=== PATIENT | female | born 1965 | race African-American/Black ===

== ENCOUNTER 2018-04-15 18:42 | Emergency (ER) | payer BC | END 2018-04-15 18:43 | disposition left against medical advice (07) | LOC: ER 18:42 | DX: Z53.21 Procedure and treatment not carried out due to patient leaving prior to being seen by health care provider (principal) ==

== ENCOUNTER 2019-03-12 12:15 | Emergency (ER) | payer SELFPAY ==
--- NOTE | 2019-03-12 12:51 | ER Document Report ---
ED General - General Chief Complaint: Neck and Upper Back Pain Stated Complaint: NECK PAIN Time Seen by Provider: 03/12/19 12:45 TRAVEL OUTSIDE OF THE [place] IN LAST 30 DAYS: No - HPI Notes: 54-year-old female to the emergency department with complaints of left-sided neck pain that began about 1 week ago. She states that she saw her primary care physician who gave her a muscle relaxant but it did not really help. She then noticed that she started to have some swelling in the back of her scalp and down her lymph nodes on the left side. She denies any fevers or chills. She admits to slight headache with it. Notably she states that she got her haircut last week. Patient has a very short haircut with it nearly buzzed in the area where she is saying is swollen and painful. - Related Data Allergies/Adverse Reactions: No Known Allergies Allergy (Verified 03/12/19 12:35) Home Medications: cardevlol. amlodipine Past Medical History - General Information source: Patient - Social History Smoking Status: Never Smoker Chew tobacco use (# tins/day): No Frequency of alcohol use: None Drug Abuse: None Family History: Arthritis, CAD, DM, Hyperlipidemia, Hypertension, Malignancy Patient has suicidal ideation: No Patient has homicidal ideation: No - Past Medical History Cardiac Medical History: Reports: Hx Hypertension Past Surgical History: Reports: Hx Tubal Ligation - Immunizations Immunizations up to date: Yes Hx Diphtheria, Pertussis, Tetanus Vaccination: Yes - 2014 Review of Systems - Review of Systems Constitutional: denies: Chills, Fever EENT: No symptoms reported, Other - Swelling of lymph nodes on the left side and swelling in the scalp Cardiovascular: denies: Chest pain, Palpitations, Dizziness, Lightheaded Respiratory: denies: Cough, Short of breath Gastrointestinal: denies: Abdominal pain, Diarrhea, Nausea, Vomiting Musculoskeletal: See HPI, Neck pain Skin: No symptoms reported Hematologic/Lymphatic: No symptoms reported Neurological/Psychological: No symptoms reported -: Yes All other systems reviewed and negative Physical Exam - Vital signs Vitals: Temp Pulse Resp BP Pulse Ox 98.3 F 71 16 147/87 H 98 03/12/19 12:26 03/12/19 12:26 03/12/19 12:26 03/12/19 12:26 03/12/19 12:26 Interpretation: Normal - General General appearance: Appears well, Alert - HEENT Head: Atraumatic, Other - Patient has a folliculitis to her left occipital scalp that is most consistent with folliculitis Barbae. There are no areas of fluctuance that can be drained. She does have reactive lymph nodes along the cervical chain. There is no streaking erythema. Eyes: Normal Pupils: PERRL Ears: Normal External canal: Normal Tympanic membrane: Normal Sinus: Normal Nasal: Normal Mouth/Lips: Normal Pharynx: Normal Neck: Supple - Respiratory Respiratory status: No respiratory distress. No: Retractions Chest status: Nontender. No: Accessory muscle use Breath sounds: Normal. No: Rales, Rhonchi, Wheezing Chest palpation: Normal - Cardiovascular Rhythm: Regular Heart sounds: Normal auscultation Murmur: No - Abdominal Inspection: Normal Distension: No distension Bowel sounds: Normal Tenderness: Nontender Organomegaly: No organomegaly - Neurological Neuro grossly intact: Yes Cognition: Normal Orientation: AAOx4 [place] Coma Scale Eye Opening: Spontaneous [place] Coma Scale Verbal: Oriented [place] Coma Scale Motor: Obeys Commands [place] Coma Scale Total: 15 Speech: Normal Cranial nerves: Normal. No: Facial palsy Cerebellar coordination: Normal. 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 No: Pronator drift Sensory: Normal - Psychological Associated symptoms: Normal affect, Normal mood - Skin Skin Temperature: Warm Skin Moisture: Dry Skin Color: Normal Course - Re-evaluation Re-evalutation: 03/12/19 Impression: Folliculitis barbea with reactive lymphadenopathy. Go ahead and start on antibiotic given the extent of her lymphadenopathy. She is not febrile here. There is nothing to drain. We will have her follow-up with primary care. She agrees with plan. - Vital Signs Vital signs: Temp Pulse Resp BP Pulse Ox 98.4 F 73 16 145/85 H 98 03/12/19 13:56 03/12/19 13:56 03/12/19 13:56 03/12/19 13:56 03/12/19 13:56 Discharge - Discharge Clinical Impression: Folliculitis barbae, Lymphadenopathy of left cervical region, Neck pain Condition: Stable Disposition: HOME, SELF-CARE Instructions: Folliculitis ([facility]), Lymphadenopathy ([facility]) Additional Instructions: Push fluids. Complete all antibiotics. Follow-up with primary care physician in the next 3 to 5 days. Return if any worsening symptoms. Prescriptions: Doxycycline Monohydrate 100 mg PO BID #20 tablet Naproxen [Naprosyn] 500 mg PO BID #20 tablet
[2019-03-12 13:59] VITALS: BP 145/85
== END 2019-03-12 14:01 | disposition home or self-care (01) ==
LOC: ER 12:15
DX: L73.8 Other specified follicular disorders (principal); R59.0 Localized enlarged lymph nodes; M54.2 Cervicalgia; M54.6 Pain in thoracic spine; R51 Headache; I10 Essential (primary) hypertension
CPT/HCPCS: 99283

== ENCOUNTER 2019-07-12 18:15 | Emergency (ER) | payer OTHER, BC ==
[2019-07-12] MEDS ORDERED: ACETAMINOPHEN 325 MG TABLET PO ONE (18:48)
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
[2019-07-13 05:13] VITALS: BP 142/104
== END 2019-07-12 19:55 | disposition home or self-care (01) ==
LOC: ER 18:15
DX: S40.012A Contusion of left shoulder, initial encounter (principal); V49.40XA Driver injured in collision with unspecified motor vehicles in traffic accident, initial encounter; M51.36 Other intervertebral disc degeneration, lumbar region; I10 Essential (primary) hypertension; I25.2 Old myocardial infarction
CPT/HCPCS: 72100; 99283

== ENCOUNTER 2019-12-20 08:34 | Emergency (ER) | payer BC ==
--- NOTE | 2019-12-20 09:56 | RADIOLOGY REPORT (SQ) ---
EXAM DESCRIPTION: SHOULDER LEFT 2 OR MORE VIEWS IMAGES COMPLETED DATE/TIME: 12/20/2019 9:36 am REASON FOR STUDY: fall injury COMPARISON: 07/12/2019 NUMBER OF VIEWS: Three views. TECHNIQUE: Internal rotation, external rotation, and Y view images acquired of the left shoulder. LIMITATIONS: None. FINDINGS: MINERALIZATION: Normal. BONES: No acute fracture. No worrisome bone lesions. JOINTS: No dislocation. VISUALIZED LUNGS AND RIBS: No pneumothorax. No rib fracture. SOFT TISSUES: No radiopaque foreign body. OTHER: No other significant finding. IMPRESSION: NEGATIVE STUDY OF THE LEFT SHOULDER. NO RADIOGRAPHIC EVIDENCE OF ACUTE INJURY. TECHNICAL DOCUMENTATION: JOB ID: [id number] 2010 [employer]- All Rights Reserved Reading location - IP/workstation name: [email or web address]
--- NOTE | 2019-12-20 10:03 | RADIOLOGY REPORT (SQ) ---
EXAM DESCRIPTION: KNEE RIGHT 4 VIEWS IMAGES COMPLETED DATE/TIME: 12/20/2019 9:36 am REASON FOR STUDY: fall injury COMPARISON: None. NUMBER OF VIEWS: Four views. TECHNIQUE: AP, lateral, and both oblique radiographic images acquired of the right knee. LIMITATIONS: None. FINDINGS: MINERALIZATION: Normal. BONES: No acute fracture or dislocation. Small osteochondroma proximal tibia. No worrisome bone les ions. JOINT: No effusion. SOFT TISSUES: No soft tissue swelling. No radio-opaque foreign body. OTHER: No other significant finding. IMPRESSION: NO RADIOGRAPHIC EVIDENCE OF ACUTE INJURY. TECHNICAL DOCUMENTATION: JOB ID: [id number] 2010 [employer]- All Rights Reserved Reading location - IP/workstation name: [email or web address]
--- NOTE | 2019-12-20 10:54 | ER Document Report ---
HPI - HPI Time Seen by Provider: 12/20/19 10:54 Pain Level: 5 Notes: 54-year-old female presents to the emergency room today for evaluation of right knee pain and left shoulder pain after she tripped yesterday afternoon and fell. Denies any head trauma or change in level consciousness. States that she tried icing last night without for relief. Pain is 3 out of 5, throbbing achy. Patient did not endorse any [id number] ibuprofen or Tylenol for pain control this morning. Able to bear partial weight. Denies any prior history of right knee pain or left shoulder pain. Denies fevers, chills, chest pain,palpitations, shortness of breath, hematuria, LH, dizziness, syncope, headaches, neck pain, weakness, bowel or bladder dysfunction, saddle anesthesia, numbness or tingling in bilateral upper or lower extremities equally, muscle paralysis, weakness in bilateral upper or lower extremities equally or rash. Denies IV drug use. - REPRODUCTIVE Reproductive: DENIES: : Past Medical History - General Information source: Patient - Social History Smoking Status: Unknown if Ever Smoked Frequency of alcohol use: None Drug Abuse: None Family History: Arthritis, CAD, DM, Hyperlipidemia, Hypertension, Malignancy - Past Medical History Cardiac Medical History: Reports: Hx Heart Attack, Hx Hypertension Past Surgical History: Reports: Hx Tubal Ligation - Immunizations Immunizations up to date: Yes Hx Diphtheria, Pertussis, Tetanus Vaccination: Yes - 2014 Vertical Provider Document - CONSTITUTIONAL Agree With Documented VS: Yes Exam Limitations: No Limitations General Appearance: WD/WN Notes: MEDICATIONS: I agree with the patient medications as charted by the RN. ALLERGIES: I agree with the allergies as charted by the RN. PAST MEDICAL HISTORY/PAST SURGICAL HISTORY: Reviewed and agree as charted by RN. SOCIAL HISTORY: Reviewed and agree as charted by RN. FAMILY HISTORY: No significant familial comorbid conditions directly related to patient complaint EXAM: Reviewed vital signs as charted by RN. PHYSICAL EXAMINATION: reviewed vital signs by RN GENERAL: Well-appearing, well-nourished and in no acute distress. HEAD: Atraumatic, normocephalic. EYES: Pupils equal round and reactive to light, extraocular movements intact, conjunctiva are normal. ENT: Nares patent, oropharynx clear without exudates. Moist mucous membranes. NECK: Normal range of motion, supple without lymphadenopathy LUNGS: Breath sounds clear to auscultation bilaterally and equal. No wheezes rales or rhonchi. HEART: Regular rate and rhythm without murmurs ABDOMEN: Soft, nontender, nondistended abdomen. No guarding, no rebound. No masses appreciated. Female : deferred Musculoskeletal: Normal range of motion, no pitting or edema. No cyanosis. left shoulder pain with abduction and flexion. no pain with supination, pronation, extension. 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 APROM in shoulder. DTR +2 in BUE equally. Noted crepitus with APROM in elbow. negative drop arm, neer sign, lu test bilaterally. slightly positive impingement sign all on left. No vascular compromise. Neck with full APROM, no cervical spinal tenderness. No tenderness over clavicles or step off noted bilaterally. Strength 5 out of 5 in bilateral upper extremities equally. right knee pain with palpation to medial aspect of knee with noted swelling. negative yuniel's sign. anterior and posterior drawer test negative. noted pain with eversion. Dtr + 2 in BLE. Full motor and sensory function to BLE equally. No open wounds. No induration or drainage. Strength 5 out of 5 bilaterally equally. Ankle examination normal. Squeeze test negative. Hip examination normal. Pulses + 2 bilaterally and equally.negative squeeze bilaterally and equally. NEUROLOGICAL: Cranial nerves grossly intact. Normal speech, normal gait. Normal sensory, motor exams PSYCH: Normal mood, normal affect. SKIN: Warm, Dry, normal turgor, no rashes or lesions noted. - INFECTION CONTROL TRAVEL OUTSIDE OF THE [place] IN LAST 30 DAYS: No Course - Re-evaluation Re-evalutation: 12/20/19 11:04 Febrile vital stable no distress. Nurses notes was reviewed. X-ray of right knee negative for any acute fracture dislocation foreign body, x-ray of left shoulder negative for any dislocation, fracture or foreign body. Patient given crutches, and a right knee immobilizer. Patient states that her shoulder is not bothering her nearly as much as her right knee. Patient prescribed naproxen, E scribed to pharmacy. Advised to follow RICE therapy, orthopedic referral has been given. After performing a Medical Screening Examination, I estimate there is LOW risk for OPEN FRACTURE, COMPARTMENT SYNDROME, DEEP VENOUS THROMBOSIS, ACUTE TENDON RUPTURE, or NEUROVASCULAR INJURY thus I consider the discharge disposition reasonable. I have reevaluated this patient multiple times and no significant life threatening changes are noted. The patient and I have discussed the diagnosis and risks, and we agree with discharging home to closely follow-up with their primary doctor or the referral orthopedist with the understanding that symptoms and presentations can change. We also discussed returning to the Emergency Department immediately if new or worsening symptoms occur. We have discussed the symptoms which are most concerning (e.g., changing or worsening pain, numbness, weakness) that necessitate immediate return - Vital Signs Vital signs: Temp Pulse Resp BP Pulse Ox 98.3 F 66 18 152/105 H 100 12/20/19 08:38 12/20/19 08:38 12/20/19 08:38 12/20/19 08:38 12/20/19 08:38 Discharge - Discharge Clinical Impression: Right knee pain Condition: Stable Disposition: HOME, SELF-CARE Instructions: Knee Immobilizing Splint ([facility]), Use of Crutches ([facility]), Ice & Elevation ([facility]), Sprained Knee ([facility]) Prescriptions: Naproxen 500 mg PO BID #10 tablet Referrals: AMY CAMPBELL PA-C [Primary Care Provider] - Follow up as needed AVRIL PENN MD [ACTIVE STAFF] - Follow up as needed
[2019-12-20 10:56] VITALS: BP 138/97
== END 2019-12-20 11:15 | disposition home or self-care (01) ==
LOC: ER 08:34
DX: M25.561 Pain in right knee (principal); M25.512 Pain in left shoulder; W01.0XXA Fall on same level from slipping, tripping and stumbling without subsequent striking against object, initial encounter; I10 Essential (primary) hypertension
CPT/HCPCS: 99284